=== PATIENT | male | born 1940 | race Caucasian/White ===

== ENCOUNTER 2022-12-29 11:00 | Inpatient (IN) ==
[2022-12-29 11:48] VITALS: BMI 23.8
[2022-12-29] MEDS: HUMULIN R SUBCUT PRN ×3 (12:08→21:04)
[2022-12-29] MEDS ORDERED: NON-FORMULARY MEDICATION (Melatonin 3 mg Tablet) PO PRN (12:09)
[2022-12-29] MEDS ORDERED: DIMETHICONE TP PRN (12:09)
[2022-12-29] MEDS ORDERED: ZINC OXIDE TP PRN (12:09)
[2022-12-29] MEDS ORDERED: OCUFLOX 0.3% OPTH SOL LEFTEYE SCH (13:00)
[2022-12-29] MEDS ORDERED: SODIUM CHLORIDE 1,000 ML IV SCH (13:00)
[2022-12-29] MEDS: OCUFLOX 0.3% OPTH SOL EACHEYE SCH ×3 (14:06→21:06)
[2022-12-29 16:01] LABS: HEMOGLOBIN 7.5 g/dl (14.0-18.0)
[2022-12-29 17:18] LABS: CALCIUM 8.16 mg/dL (8.4-10.2); CARBON DIOXIDE 21.8 mmol/L (22-30.0); CHLORIDE 107.2 mmol/L (98-107); CREATININE 1.04 mg/dL (0.60-1.10); GLUCOSE 287.4 mg/dL (74-106); POTASSIUM 5.18 mmol/L (3.5-5.1)
[2022-12-29] MEDS: COREG PO SCH (17:25)
[2022-12-29 17:44] LABS: BLOOD UREA NITROGEN 131.3 mg/dL (9-20)
[2022-12-29] MEDS ORDERED: AUGMENTIN 875-125 MG TAB PO SCH (21:00)
[2022-12-29] MEDS ORDERED: ELIQUIS PO SCH (21:00)
[2022-12-29] MEDS: PRAVACHOL PO SCH (21:05)
[2022-12-29] MEDS: HYTRIN PO SCH (21:55)
[2022-12-30 00:03] LABS: HEMATOCRIT 24.5 % (42.0-52.0); HEMOGLOBIN 8.5 g/dl (14.0-18.0)
[2022-12-30] MEDS: SODIUM CHLORIDE 1,000 ML IV SCH ×4 (02:54→19:23)
[2022-12-30 05:40] LABS: HEMATOCRIT 22.6 % (42.0-52.0); HEMOGLOBIN 7.4 g/dl (14.0-18.0); MEAN CORPUSCULAR HEMOGLOBIN 34.4 pg (27.0-31.0); MEAN CORPUSCULAR HGB CONC 32.7 (31.8-35.4); MEAN CORPUSCULAR VOLUME 105.1 fl (80.0-94.0); PLATELET COUNT 188 10^3/uL (140-440); RDW COEFFICIENT OF VARIATION 14.3 % (11.6-14.8); RED BLOOD COUNT 2.15 10^6/ul (4.70-6.10)
[2022-12-30 05:46] LABS: PROTHROMBIN TIME 11.4 SEC (9.3-11.0)
[2022-12-30 05:52] LABS: ALANINE AMINOTRANSFERASE 32.2 U/L (0-50); ALBUMIN 1.88 g/dL (3.5-5.0); ALKALINE PHOSPHATASE 32.6 U/L (56-119); ASPARTATE AMINO TRANSFERASE 33.5 U/L (17-59); BILIRUBIN,TOTAL 0.25 mg/dL (0.2-1.3); CALCIUM 8.18 mg/dL (8.4-10.2); CARBON DIOXIDE 23.5 mmol/L (22-30.0); CHLORIDE 115.2 mmol/L (98-107); CREATININE 0.82 mg/dL (0.60-1.10); GLUCOSE 196.4 mg/dL (74-106); SODIUM 140.1 mmol/L (134.5-145); TOTAL PROTEIN 3.95 g/dL (6.3-8.2)
[2022-12-30 05:53] LABS: ANISOCYTOSIS NOT PRESENT (NOT PRESENT)
[2022-12-30 06:00] LABS: BLOOD UREA NITROGEN 115.9 mg/dL (9-20); POTASSIUM 4.92 mmol/L (3.5-5.1)
[2022-12-30] MEDS ORDERED: ASPIRIN EC PO SCH (08:30)
[2022-12-30] MEDS ORDERED: GLUCOPHAGE PO SCH (08:30)
[2022-12-30] MEDS: DIABETA PO SCH (08:38)
[2022-12-30] MEDS: COREG PO SCH ×2 (08:38→16:10)
[2022-12-30] MEDS: OCUFLOX 0.3% OPTH SOL EACHEYE SCH ×4 (08:41→21:55)
[2022-12-30] MEDS: ROCEPHIN 1 GM/50 ML D5W 1 GM/50 ML BAG IV SCH (08:41)
[2022-12-30] MEDS ORDERED: NORVASC PO SCH (09:00)
[2022-12-30] MEDS: HUMULIN R SUBCUT PRN ×2 (11:04→17:30)
[2022-12-30 14:02] LABS: HEMATOCRIT 25.7 % (42.0-52.0); HEMOGLOBIN 8.3 g/dl (14.0-18.0)
[2022-12-30] MEDS: PRAVACHOL PO SCH (21:33)
[2022-12-30] MEDS: HYTRIN PO SCH (21:33)
[2022-12-31] MEDS: SODIUM CHLORIDE 1,000 ML IV SCH ×2 (02:59→14:25)
[2022-12-31 05:37] LABS: BASOPHILS # (AUTO) 0.1 K/uL (0-0.2); BASOPHILS % (AUTO) 0.4 % (0.0-3.0); EOSINOPHILS # (AUTO) 0.3 K/ul (0.0-0.7); EOSINOPHILS % (AUTO) 1.4 % (0.0-7.0); HEMOGLOBIN 7.9 g/dl (14.0-18.0); IMMATURE GRANULOCYTE # (AUTO) 0.3 (0.0-1.0); IMMATURE GRANULOCYTE % (AUTO) 1.6 % (0.0-5.0); LYMPHOCYTES # (AUTO) 2.1 K/uL (0.60-3.4); LYMPHOCYTES % (AUTO) 9.9 (10.0-50.0); MEAN CORPUSCULAR HEMOGLOBIN 34.1 pg (27.0-31.0); MEAN CORPUSCULAR HGB CONC 32.9 (31.8-35.4); MEAN CORPUSCULAR VOLUME 103.4 fl (80.0-94.0); MONOCYTES # (AUTO) 2.2 K/uL (0.4-2.0); MONOCYTES % (AUTO) 10.1 (0-10); NEUTROPHILS # (AUTO) 16.3 K/ul (2.0-6.9); NEUTROPHILS % (AUTO) 76.6 % (42.2-75.2); PLATELET COUNT 214 10^3/uL (140-440); RDW COEFFICIENT OF VARIATION 15.5 % (11.6-14.8); RED BLOOD COUNT 2.32 10^6/ul (4.70-6.10)
[2022-12-31 05:54] LABS: ALANINE AMINOTRANSFERASE 67.3 U/L (0-50); ALBUMIN 2.15 g/dL (3.5-5.0); ALKALINE PHOSPHATASE 36.4 U/L (56-119); ASPARTATE AMINO TRANSFERASE 60.1 U/L (17-59); BILIRUBIN,TOTAL 0.4 mg/dL (0.2-1.3); CALCIUM 7.69 mg/dL (8.4-10.2); CARBON DIOXIDE 20.9 mmol/L (22-30.0); CHLORIDE 116.6 mmol/L (98-107); CREATININE 0.7 mg/dL (0.60-1.10); GLUCOSE 69.2 mg/dL (74-106); POTASSIUM 4.01 mmol/L (3.5-5.1); SODIUM 140.8 mmol/L (134.5-145); TOTAL PROTEIN 4.41 g/dL (6.3-8.2)
[2022-12-31 06:06] LABS: BLOOD UREA NITROGEN 70.4 mg/dL (9-20)
[2022-12-31] MEDS: ROCEPHIN 1 GM/50 ML D5W 1 GM/50 ML BAG IV SCH (08:58)
[2022-12-31] MEDS: COREG PO SCH ×2 (12:35→16:48)
[2022-12-31] MEDS: DIABETA PO SCH (12:35)
[2022-12-31] MEDS: OCUFLOX 0.3% OPTH SOL EACHEYE SCH ×4 (12:38→20:48)
[2022-12-31] MEDS: PRAVACHOL PO SCH (20:48)
[2023-01-01 05:56] LABS: BASOPHILS % (AUTO) 0.3 % (0.0-3.0); EOSINOPHILS # (AUTO) 0.4 K/ul (0.0-0.7); EOSINOPHILS % (AUTO) 3.2 % (0.0-7.0); HEMATOCRIT 20.6 % (42.0-52.0); HEMOGLOBIN 6.7 g/dl (14.0-18.0); IMMATURE GRANULOCYTE # (AUTO) 0.2 (0.0-1.0); IMMATURE GRANULOCYTE % (AUTO) 1.3 % (0.0-5.0); LYMPHOCYTES # (AUTO) 1.8 K/uL (0.60-3.4); LYMPHOCYTES % (AUTO) 13.8 (10.0-50.0); MEAN CORPUSCULAR HEMOGLOBIN 34.2 pg (27.0-31.0); MEAN CORPUSCULAR HGB CONC 32.5 (31.8-35.4); MEAN CORPUSCULAR VOLUME 105.1 fl (80.0-94.0); MONOCYTES # (AUTO) 1.2 K/uL (0.4-2.0); MONOCYTES % (AUTO) 9.2 (0-10); NEUTROPHILS # (AUTO) 9.5 K/ul (2.0-6.9); NEUTROPHILS % (AUTO) 72.2 % (42.2-75.2); PLATELET COUNT 193 10^3/uL (140-440); RDW COEFFICIENT OF VARIATION 15.3 % (11.6-14.8); RED BLOOD COUNT 1.96 10^6/ul (4.70-6.10); WHITE BLOOD COUNT 13.09 K/ul (4.2-10.2)
[2023-01-01] MEDS: SODIUM CHLORIDE 1,000 ML IV SCH ×2 (06:00→08:45)
[2023-01-01 06:09] LABS: ALANINE AMINOTRANSFERASE 97.3 U/L (0-50); ALBUMIN 2.03 g/dL (3.5-5.0); ASPARTATE AMINO TRANSFERASE 80.9 U/L (17-59); BILIRUBIN,TOTAL 0.34 mg/dL (0.2-1.3); BLOOD UREA NITROGEN 35.6 mg/dL (9-20); CALCIUM 7.15 mg/dL (8.4-10.2); CARBON DIOXIDE 22.2 mmol/L (22-30.0); CHLORIDE 110.7 mmol/L (98-107); CREATININE 0.57 mg/dL (0.60-1.10); GLUCOSE 165.4 mg/dL (74-106); POTASSIUM 4.11 mmol/L (3.5-5.1); SODIUM 134.6 mmol/L (134.5-145); TOTAL PROTEIN 4.25 g/dL (6.3-8.2)
[2023-01-01] MEDS: ROCEPHIN 1 GM/50 ML D5W 1 GM/50 ML BAG IV SCH (09:24)
[2023-01-01] MEDS: DIABETA PO SCH (09:24)
[2023-01-01] MEDS: COREG PO SCH ×2 (09:24→17:51)
[2023-01-01] MEDS: OCUFLOX 0.3% OPTH SOL EACHEYE SCH (09:25)
[2023-01-01 18:36] LABS: HEMATOCRIT 24.4 % (42.0-52.0)
--- NOTE | 2023-01-01 18:38 | CT ---
EXAM: CT BRAIN WITHOUT CONTRAST HISTORY: Altered mental status, weakness TECHNIQUE: CT of the brain without intravenous contrast. FINDINGS: There is no acute hemorrhage midline shift or mass effect. No hydrocephalus or abnormal e xtra-axial fluid collection. Generalized involutional atrophy, moderate. Chronic microvascular cabrera ge of the white matter tracts, moderate. No acute large vessel territorial infarct is seen. The bon y cranium appears normal. The visualized paranasal sinuses are clear. Soft tissues without significa nt abnormality. IMPRESSION: 1. No acute intracranial abnormality. Chronic changes as described. All CT scans are performed using dose optimization techniques as appropriate to the performed exam an d include at least one of the following: Automated exposure control, adjustment of the mA and/or kV according t o size, and the use of iterative reconstruction technique.
[2023-01-01 18:43] LABS: HEMOGLOBIN 8.1 g/dl (14.0-18.0)
[2023-01-01] MEDS: PRAVACHOL PO SCH (20:50)
[2023-01-02 05:16] LABS: BASOPHILS # (AUTO) 0.1 K/uL (0-0.2); BASOPHILS % (AUTO) 0.5 % (0.0-3.0); EOSINOPHILS # (AUTO) 0.3 K/ul (0.0-0.7); EOSINOPHILS % (AUTO) 2.7 % (0.0-7.0); HEMATOCRIT 24.6 % (42.0-52.0); HEMOGLOBIN 8.3 g/dl (14.0-18.0); IMMATURE GRANULOCYTE # (AUTO) 0.2 (0.0-1.0); IMMATURE GRANULOCYTE % (AUTO) 1.4 % (0.0-5.0); LYMPHOCYTES # (AUTO) 1.8 K/uL (0.60-3.4); MEAN CORPUSCULAR HEMOGLOBIN 33.7 pg (27.0-31.0); MEAN CORPUSCULAR HGB CONC 33.7 (31.8-35.4); MONOCYTES # (AUTO) 1.2 K/uL (0.4-2.0); MONOCYTES % (AUTO) 9.5 (0-10); NEUTROPHILS % (AUTO) 71.9 % (42.2-75.2); PLATELET COUNT 217 10^3/uL (140-440); RDW COEFFICIENT OF VARIATION 16.1 % (11.6-14.8); RED BLOOD COUNT 2.46 10^6/ul (4.70-6.10); WHITE BLOOD COUNT 12.55 K/ul (4.2-10.2)
[2023-01-02 05:32] LABS: ALANINE AMINOTRANSFERASE 92.2 U/L (0-50); ALBUMIN 2.27 g/dL (3.5-5.0); ALKALINE PHOSPHATASE 55.3 U/L (56-119); ASPARTATE AMINO TRANSFERASE 57.5 U/L (17-59); BILIRUBIN,TOTAL 0.47 mg/dL (0.2-1.3); BLOOD UREA NITROGEN 15.7 mg/dL (9-20); CALCIUM 7.3 mg/dL (8.4-10.2); CARBON DIOXIDE 23.9 mmol/L (22-30.0); CHLORIDE 102.9 mmol/L (98-107); CREATININE 0.58 mg/dL (0.60-1.10); POTASSIUM 3.67 mmol/L (3.5-5.1); SODIUM 128.6 mmol/L (134.5-145); TOTAL PROTEIN 4.62 g/dL (6.3-8.2)
[2023-01-02] MEDS: DIABETA PO SCH (09:31)
[2023-01-02] MEDS: COREG PO SCH ×2 (09:32→17:26)
--- NOTE | 2023-01-02 13:10 | RS.PTINEVL ---
Subjective - Patient information Date of Evaluation: 01/02/23 Date of Arrival on Unit: 12/29/22 Admitted From:: In-House Transfer (transferred from Swing Bed to Acute due to medical condition) Usual Living Arrangement: Alone Living Arrangement Comments: Prior to hospital admissions, patient lived alone. Home Environment: House, Ramp Medical History Comments:: HTN, Diabetes, Afib, rhabdomyolysis, small bowel obstruction Subjective Information/ Patient Comments:: Mr. Finn states Dr. Tamayo is going out of the country for a few weeks and he said he was going to send him to a fpc. States has not walked in several days. Agrees to try to ambulate. Patient takes breaths every 2-3 words. - Level of function Abilities prior to this admission: Received therapy to increase functional ability and independence while in Swing Bed, as patient had been independent prior to these hospitalizations. Current Level of Function: Partially Dependent Current Equipment Used at Home: rolling walker Interventions - Objective Patient Orientation: Person, Place, Situation Current Interventions: IV's, Oxygen Observation: O2 sat while in bed is 99 %. Range of Motion - ROM Comments:: Bilateral LE AROM is WFL's. Bilateral UE's WFL's. Muscle Strength - Muscle Strength Comments:: Demonstrates general weakness throughout. 3+/5 bilateral hips, 3 to 3+/5 knees, 4/5 ankles. Sensation - Sensation Right Upper Extremity Sensation: Intact/Normal Left Upper Extremity Sensation: Intact/Normal Right Lower Extremity Sensation: Intact/Normal Left Lower Extremity Sensation: Intact/Normal Balance - Sitting Balance and Reactions Static Sitting Balance: Fair Dynamic Sitting Balance: Fair (-) - Standing Balance and Reactions Static Standing Balance: Poor Dynamic Standing Balance: Poor Functional Mobility - Bed Mobility Rolling R/L: Mod Assist, 2 person assist, Verbal Cues, Tactile Cues Supine to Sit: Mod Assist, 2 person assist, Verbal Cues, Tactile Cues Comments:: Patient requires continuous verbal and tactile cues to move legs towards the edge of the bed. He requires min-mod assist with LE's until close enough toward edge of bed for him to grab the rail of bed. He then requires mod assistance with trunk and to bring to sitting on edge of bed. - Transfers Sit to Stand: Mod Assist, 1 person assist, 2 person assist, Verbal Cues, Tactile Cues Stand to Sit: Mod Assist, 1 person assist, 2 person assist, Verbal Cues, Tactile Cues Stand Pivot Transfers: Mod Assist, 1 person assist, 2 person assist, Verbal Cues, Tactile Cues Comments:: Patient requires cues to use UE's to push from bed and for assistance with sit to stand with min-mod assist of 2 to stand and garrick depends. Then requires continuous cues with mod assist to take steps to chair at bedside. Demonstrates shuffling, small steps. Upon return to chair, patient's O2 saturation 99%. - Safety Awareness Safety Awareness: Poor OLGA INDEX SCORE: NA Ambulation - Ambulation Weight Bearing Status: FWB Assistive Device Used: Rolling Walker Orthotic/Prosthetic Device: No Distance: chair at bedside Assistance needed with Ambulation: Mod Assist, 2 person assist, Verbal Cues, Tactile Cues Gait Deviations: Shuffling gait, Forward posture, Short stride Factors Affecting Ambulation: Decreased Balance, Weakness, Decreased Safety, Cognitive Status, Limited Endurance Treatment time - Time with patient Length of Evaluation: 16 mins Total treatment time: 18 Assessment - Assessment Problem List:: Decreased level of function, Requires training/education, Decreased safety/Risk of falls, Weakness Rehab Potential: Good Further Therapy Indicated?: Yes Candidate for Swing Bed for Therapy Services?: Feel patient candidate for intermediate manager care rehab, as he has declined significantly since being admitted back to Acute status. Evaluation Complexity: HISTORY: Medium, EXAM OF BODY SYSTEMS: Medium, CLINICAL PRESENTATION: Medium, CLINICAL DECISION MAKING: Medium Patient's Goal(s): His goal is to be able to walk on his own again. Short Term Goals GOAL #1: Pt demonstrate rolling/scooting in bed without bed rails with min A of 1 Goal to be met by: 01/06/23 GOAL #2: Pt transfer sup to/from sit with min A of 1. Goal to be met by: 01/06/23 GOAL #3: Pt to transfer sit to stand with use of UE's to push from seated surface. Goal to be met by: 01/06/23 GOAL #4: Transfers sit <> stand with Min A of 1. Goal to be met by: 01/06/23 Assisted Goals GOAL #1: All bed mobility with CGA of 1 Goal to be met by: 01/09/23 GOAL #2: Transfers with good safety and CGA of 1. Goal to be met by: 01/09/23 GOAL #3: Pt to ambulate 60 feet with RW and min A of 1 with good foot clearance. Goal to be met by: 01/09/23 Plan Plan of Care: Therapeutic EX, Neuromuscular Re-Educ, Therapeutic Activity, Self- Care/Home Management Frequency of Treatment: 1-2 X day, as tolerated Duration of Treatment: 1 Week Anticipated Discharge Destination: [facility] Treatment Diagnosis (ICD 10 Codes): R26.2 Difficulty walking, Z91.81 AT risk for falls, Z74.0 Reduced mobility Has the Physician been added for Co-signature?: Yes
[2023-01-02] MEDS: OMNICEF PO SCH ×2 (15:30→20:06)
[2023-01-02] MEDS: SODIUM CHLORIDE 1,000 ML IV SCH (17:39)
[2023-01-02] MEDS: PRAVACHOL PO SCH (20:06)
[2023-01-03 05:52] LABS: BASOPHILS # (AUTO) 0.1 K/uL (0-0.2); BASOPHILS % (AUTO) 0.4 % (0.0-3.0); EOSINOPHILS # (AUTO) 0.3 K/ul (0.0-0.7); EOSINOPHILS % (AUTO) 2.6 % (0.0-7.0); HEMATOCRIT 24.7 % (42.0-52.0); HEMOGLOBIN 8.5 g/dl (14.0-18.0); IMMATURE GRANULOCYTE # (AUTO) 0.3 (0.0-1.0); MEAN CORPUSCULAR HEMOGLOBIN 34.6 pg (27.0-31.0); MEAN CORPUSCULAR HGB CONC 34.4 (31.8-35.4); MEAN CORPUSCULAR VOLUME 100.4 fl (80.0-94.0); MONOCYTES # (AUTO) 1.2 K/uL (0.4-2.0); MONOCYTES % (AUTO) 9.9 (0-10); NEUTROPHILS # (AUTO) 8.5 K/ul (2.0-6.9); NEUTROPHILS % (AUTO) 69.1 % (42.2-75.2); PLATELET COUNT 225 10^3/uL (140-440); RDW COEFFICIENT OF VARIATION 16.5 % (11.6-14.8); RED BLOOD COUNT 2.46 10^6/ul (4.70-6.10); WHITE BLOOD COUNT 12.31 K/ul (4.2-10.2)
[2023-01-03 06:09] LABS: ALBUMIN 2.34 g/dL (3.5-5.0); ALKALINE PHOSPHATASE 59.8 U/L (56-119); ASPARTATE AMINO TRANSFERASE 41.1 U/L (17-59); BILIRUBIN,TOTAL 0.47 mg/dL (0.2-1.3); BLOOD UREA NITROGEN 10.6 mg/dL (9-20); CALCIUM 7.42 mg/dL (8.4-10.2); CARBON DIOXIDE 25.8 mmol/L (22-30.0); CHLORIDE 103.9 mmol/L (98-107); CREATININE 0.57 mg/dL (0.60-1.10); GLUCOSE 113.7 mg/dL (74-106); POTASSIUM 3.31 mmol/L (3.5-5.1); SODIUM 129.9 mmol/L (134.5-145); TOTAL PROTEIN 4.77 g/dL (6.3-8.2)
[2023-01-03] MEDS: COREG PO SCH ×2 (08:33→17:46)
[2023-01-03] MEDS: OMNICEF PO SCH ×2 (08:33→20:29)
[2023-01-03] MEDS: DIABETA PO SCH (08:34)
--- NOTE | 2023-01-03 13:43 | PCM.PROG ---
Date Seen by Provider: 01/03/23 Time Seen by Provider: 13:41 Subjective: dx. anemia, deconditioning Objective: Vitals: T=96.2 F, P=93, R=17, BP=84/53, SPO2=80 HEENT: []conjunctiva clear Neck: []supple Lungs: [] no wheezing CVS: []RRR Abdomen: []nondistended Extremities: []warm and dry Neurological: []alert Skin: [] Lab/Tests/Diagnostic Imaging: [] Na 129, Hb 8.5, wbc 12.3 Plan: assess ot and pt, obtain stoo for occult blood, am labs
[2023-01-03] MEDS: PRAVACHOL PO SCH (20:29)
[2023-01-04] MEDS: SODIUM CHLORIDE 1,000 ML IV SCH (00:32)
[2023-01-04] MEDS ORDERED: DULCOLAX PO ONE (06:00)
[2023-01-04 06:09] LABS: BASOPHILS % (AUTO) 0.3 % (0.0-3.0); EOSINOPHILS # (AUTO) 0.2 K/ul (0.0-0.7); EOSINOPHILS % (AUTO) 3.1 % (0.0-7.0); HEMATOCRIT 34.9 % (42.0-52.0); HEMOGLOBIN 11.6 g/dl (14.0-18.0); IMMATURE GRANULOCYTE % (AUTO) 0.3 % (0.0-5.0); LYMPHOCYTES # (AUTO) 0.7 K/uL (0.60-3.4); LYMPHOCYTES % (AUTO) 12.6 (10.0-50.0); MEAN CORPUSCULAR HEMOGLOBIN 32.2 pg (27.0-31.0); MEAN CORPUSCULAR HGB CONC 33.2 (31.8-35.4); MEAN CORPUSCULAR VOLUME 96.9 fl (80.0-94.0); MONOCYTES # (AUTO) 0.7 K/uL (0.4-2.0); MONOCYTES % (AUTO) 11.7 (0-10); NEUTROPHILS # (AUTO) 4.2 K/ul (2.0-6.9); PLATELET COUNT 226 10^3/uL (140-440); RDW COEFFICIENT OF VARIATION 13.2 % (11.6-14.8); WHITE BLOOD COUNT 5.88 K/ul (4.2-10.2)
[2023-01-04 06:24] LABS: ALANINE AMINOTRANSFERASE 12.8 U/L (0-50); ALBUMIN 3.32 g/dL (3.5-5.0); ALKALINE PHOSPHATASE 79.3 U/L (56-119); ASPARTATE AMINO TRANSFERASE 20.3 U/L (17-59); BILIRUBIN,TOTAL 0.96 mg/dL (0.2-1.3); BLOOD UREA NITROGEN 11.7 mg/dL (9-20); CALCIUM 8.38 mg/dL (8.4-10.2); CARBON DIOXIDE 27.9 mmol/L (22-30.0); CHLORIDE 107.8 mmol/L (98-107); CREATININE 0.61 mg/dL (0.60-1.10); GLUCOSE 85.9 mg/dL (74-106); POTASSIUM 3.26 mmol/L (3.5-5.1); SODIUM 139.7 mmol/L (134.5-145); TOTAL PROTEIN 6.31 g/dL (6.3-8.2)
[2023-01-04] MEDS: OMNICEF PO SCH ×2 (08:26→20:35)
[2023-01-04] MEDS: DIABETA PO SCH (08:26)
[2023-01-04] MEDS: COREG PO SCH ×2 (08:26→17:42)
[2023-01-04] MEDS ORDERED: MILK OF MAGNESIA PO ONE (15:17)
--- NOTE | 2023-01-04 15:59 | PCM.PROG ---
Date Seen by Provider: 01/04/23 Time Seen by Provider: 15:57 Subjective: dx. deconditioning, anemia Objective: Vitals: T=96.3 F, P=79, R=18, [place]=982/53, SPO2=98 HEENT: []conjunctiva clear Neck: []supple Lungs: [] no respiratory distress CVS: [] Abdomen: []nondistended Extremities: []warm and dry Neurological: []alert Skin: []pink Lab/Tests/Diagnostic Imaging: [] Plan: await stool for hemoccult, await NH placement
[2023-01-04] MEDS: PRAVACHOL PO SCH (20:36)
[2023-01-04] MEDS ORDERED: DESYREL PO STA (20:56)
[2023-01-04 22:09] LABS: OCCULT BLOOD SAMPLE 1 POSITIVE (NEGATIVE)
[2023-01-05 05:52] LABS: BASOPHILS % (AUTO) 0.3 % (0.0-3.0); EOSINOPHILS # (AUTO) 0.3 K/ul (0.0-0.7); EOSINOPHILS % (AUTO) 2.9 % (0.0-7.0); HEMATOCRIT 25.6 % (42.0-52.0); HEMOGLOBIN 8.4 g/dl (14.0-18.0); IMMATURE GRANULOCYTE # (AUTO) 0.2 (0.0-1.0); IMMATURE GRANULOCYTE % (AUTO) 1.5 % (0.0-5.0); LYMPHOCYTES # (AUTO) 1.2 K/uL (0.60-3.4); LYMPHOCYTES % (AUTO) 9.8 (10.0-50.0); MEAN CORPUSCULAR HEMOGLOBIN 33.6 pg (27.0-31.0); MEAN CORPUSCULAR HGB CONC 32.8 (31.8-35.4); MEAN CORPUSCULAR VOLUME 102.4 fl (80.0-94.0); MONOCYTES # (AUTO) 0.7 K/uL (0.4-2.0); MONOCYTES % (AUTO) 6.1 (0-10); NEUTROPHILS # (AUTO) 9.5 K/ul (2.0-6.9); NEUTROPHILS % (AUTO) 79.4 % (42.2-75.2); PLATELET COUNT 235 10^3/uL (140-440); RDW COEFFICIENT OF VARIATION 16.6 % (11.6-14.8)
[2023-01-05 06:05] LABS: ALANINE AMINOTRANSFERASE 49.8 U/L (0-50); ALBUMIN 2.26 g/dL (3.5-5.0); ALKALINE PHOSPHATASE 56.2 U/L (56-119); ASPARTATE AMINO TRANSFERASE 28.5 U/L (17-59); BILIRUBIN,TOTAL 0.25 mg/dL (0.2-1.3); BLOOD UREA NITROGEN 16.6 mg/dL (9-20); CALCIUM 7.51 mg/dL (8.4-10.2); CARBON DIOXIDE 26.2 mmol/L (22-30.0); CHLORIDE 104.4 mmol/L (98-107); CREATININE 0.56 mg/dL (0.60-1.10); GLUCOSE 205.5 mg/dL (74-106); POTASSIUM 4.16 mmol/L (3.5-5.1); SODIUM 131.9 mmol/L (134.5-145); TOTAL PROTEIN 4.69 g/dL (6.3-8.2)
[2023-01-05 07:06] LABS: OCCULT BLOOD SAMPLE 2 NO SPECIMEN RECEIVED (NEGATIVE); OCCULT BLOOD SAMPLE 3 NO SPECIMEN RECEIVED (NEGATIVE)
[2023-01-05] MEDS: COREG PO SCH ×2 (09:25→18:32)
[2023-01-05] MEDS: OMNICEF PO SCH ×2 (09:25→20:42)
[2023-01-05] MEDS: DIABETA PO SCH (09:25)
--- NOTE | 2023-01-05 10:25 | PCM.PROG ---
Date Seen by Provider: 01/05/23 Time Seen by Provider: 09:00 Subjective: No complaints. Nursing reports that patient has not had a BM in 4-5 days. Objective: Vitals: T=97.8 F, P=88, R=18, VG=080/63, SPO2=95 Alert and in NAD. HEENT: [] Neck: [] Lungs: [] Clear and BS equal. CVS: [] No murmur or gallop. Abdomen: [] Distended, soft and nontender. Extremities: [] Mild peripheral edema and some scrotal edema. Neurological: [] Skin: [] Lab/Tests/Diagnostic Imaging: [] (1) Anemia: Status: Acute Code(s): D64.9 - Anemia, unspecified SNOMED Code(s): 150346781 (2) Physical deconditioning: Status: Acute Code(s): R53.81 - Other malaise SNOMED Code(s): 54718845863530 Plan: Believe that Hgb level of 11.1 was spurious. Will repeat. Check KUB. Hopefully transfer tomorrow.
--- NOTE | 2023-01-05 11:02 | DI ---
EXAM: SINGLE VIEW OF THE ABDOMEN HISTORY: Constipation. COMPARISON: None FINDINGS: There is scattered gas and stool distended bowel in the abdomen pelvis with significant sto ol in the distal pelvis. 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 There is no pneumatos is or portal venous gas. IMPRESSION: The scattered gas and stool throughout the bowel with significant stool in the pelvis estrella ggestive of constipation.
[2023-01-05] MEDS ORDERED: MILK OF MAGNESIA PO ONE (13:00)
[2023-01-05] MEDS: MIRALAX PO SCH (13:22)
[2023-01-05] MEDS ORDERED: ZOFRAN 4 MG/2 ML IVP PRN (17:05)
[2023-01-05] MEDS: PRAVACHOL PO SCH (20:42)
[2023-01-06 05:10] LABS: BASOPHILS % (AUTO) 0.2 % (0.0-3.0); EOSINOPHILS # (AUTO) 0.3 K/ul (0.0-0.7); EOSINOPHILS % (AUTO) 3.4 % (0.0-7.0); HEMATOCRIT 24.1 % (42.0-52.0); HEMOGLOBIN 8.1 g/dl (14.0-18.0); IMMATURE GRANULOCYTE # (AUTO) 0.1 (0.0-1.0); LYMPHOCYTES # (AUTO) 1.2 K/uL (0.60-3.4); LYMPHOCYTES % (AUTO) 13.5 (10.0-50.0); MEAN CORPUSCULAR HEMOGLOBIN 34.5 pg (27.0-31.0); MEAN CORPUSCULAR HGB CONC 33.6 (31.8-35.4); MEAN CORPUSCULAR VOLUME 102.6 fl (80.0-94.0); MONOCYTES # (AUTO) 0.6 K/uL (0.4-2.0); MONOCYTES % (AUTO) 6.9 (0-10); NEUTROPHILS # (AUTO) 6.8 K/ul (2.0-6.9); PLATELET COUNT 216 10^3/uL (140-440); RDW COEFFICIENT OF VARIATION 16.5 % (11.6-14.8); RED BLOOD COUNT 2.35 10^6/ul (4.70-6.10); WHITE BLOOD COUNT 9.05 K/ul (4.2-10.2)
[2023-01-06 05:26] LABS: ALANINE AMINOTRANSFERASE 42.6 U/L (0-50); ALBUMIN 2.07 g/dL (3.5-5.0); ALKALINE PHOSPHATASE 51.7 U/L (56-119); ASPARTATE AMINO TRANSFERASE 28.8 U/L (17-59); BILIRUBIN,TOTAL 0.45 mg/dL (0.2-1.3); BLOOD UREA NITROGEN 13.1 mg/dL (9-20); CALCIUM 7.37 mg/dL (8.4-10.2); CARBON DIOXIDE 28.5 mmol/L (22-30.0); CHLORIDE 104.8 mmol/L (98-107); CREATININE 0.47 mg/dL (0.60-1.10); GLUCOSE 118.5 mg/dL (74-106); POTASSIUM 4.07 mmol/L (3.5-5.1); SODIUM 131.4 mmol/L (134.5-145); TOTAL PROTEIN 4.44 g/dL (6.3-8.2)
[2023-01-06] MEDS: OMNICEF PO SCH (08:03)
[2023-01-06] MEDS: MIRALAX PO SCH (08:03)
[2023-01-06] MEDS: DIABETA PO SCH (08:03)
[2023-01-06] MEDS: COREG PO SCH (08:04)
[2023-01-06] MEDS ORDERED: PROTONIX PO SCH (09:13)
[2023-01-06 10:07] VITALS: BP 111/70; TEMP 96.9
--- NOTE | 2023-01-06 11:40 | PCM.DC ---
Final Diagnosis: anemia, gi bleed, deconditioning Physical Exam Appearance: Well-appearing Ill-appearing: None Pain Distress: None Eyes: Conjunctiva clear ENT: Oropharynx normal Neck: Supple Respiratory: Airway patent Cardiovascular: RRR GI/: Soft and Nontender Musculoskeletal: No calf tenderness Skin: Warm and Dry Neurological: Alert and Oriented Psychiatric: Affect appropriate (1) Anemia: Status: Acute Code(s): D64.9 - Anemia, unspecified SNOMED Code(s): 257944507 (2) Physical deconditioning: Status: Acute Code(s): R53.81 - Other malaise SNOMED Code(s): 70929887670996 Reason for Hospitalization: swing bed deconditioning Prognosis/Condition at Discharge: fair Medications at Discharge: home meds, protonix Lab/Diagnostics: Hb 8.1, melenotic stool Education Provided to Patient and Family: antacid therapy Follow-ups: transfer accept at [facility] by Dr Edwards Discharge Disposition: Transfer Hospital Course: transfused prbc Plan: transfer to at [facility]
== END 2023-01-06 12:50 | disposition short-term general hospital (02) | DRG 683 ==
LOC: MEDSURG A 11:00
PROVIDERS: ADMIT Family Medicine; ATTEND Surgery
DX: N17.9 Acute kidney failure, unspecified; Z87.19 Personal history of other diseases of the digestive system; R53.81 Other malaise; Z91.81 History of falling; I10 Essential (primary) hypertension; R26.2 Difficulty in walking, not elsewhere classified; Z87.81 Personal history of (healed) traumatic fracture; Z79.4 Long term (current) use of insulin; Z79.01 Long term (current) use of anticoagulants; Z51.81 Encounter for therapeutic drug level monitoring; K92.2 Gastrointestinal hemorrhage, unspecified; Z79.899 Other long term (current) drug therapy; E11.9 Type 2 diabetes mellitus without complications; E78.5 Hyperlipidemia, unspecified; Z74.1 Need for assistance with personal care; Z79.84 Long term (current) use of oral hypoglycemic drugs; R53.1 Weakness; D64.9 Anemia, unspecified; Z74.09 Other reduced mobility